=== PATIENT | female | born 1985 | race Caucasian/White ===

== ENCOUNTER 2018-01-31 06:22 | Emergency (ER) | payer OTHER ==
[~2018-01-31] VITALS: Ht 157.5 cm; Wt 63.5 kg
[~2018-01-31 06:22] MED LIST: METFORMIN
[2018-01-31 06:57] LABS: ABSOLUTE BASOPHILS 0.1 thou/uL (0.0-0.2); ABSOLUTE EOSINOPHILS 0.1 thou/uL (0.0-0.7); ABSOLUTE LYMPHOCYTES 1.3 thou/uL (0.8-5.3); ABSOLUTE MONOCYTES 0.5 thou/uL (0.0-1.2); ABSOLUTE NEUTROPHILS 4.7 thou/uL (1.6-8.1); BASOPHILS 0.9 %; EOSINOPHILS 1.4 %; HEMATOCRIT 40.1 % (37.0-47.0); HEMOGLOBIN 13.6 gm/dL (12.0-15.0); LYMPHOCYTES 19.5 %; MCH 28.8 pg (26.0-34.0); MCHC 33.9 g/dL (28.0-37.0); MONOCYTES 7.4 %; MPV 9.1 fl. (7.2-11.1); NUCLEATED RBCS 0 /100WBC; PLATELET COUNT* 244 thou/uL (150-400); POLYS 70.8 %; RBC 4.71 mil/uL (4.20-5.00); RDW-CV 12.6 % (10.5-14.5); WBC 6.7 thou/uL (4.0-11.0)
[2018-01-31 07:04] LABS: ANION GAP 8 mmol/L (7-16); BUN 12 mg/dL (7-18); CALCIUM 8.9 mg/dL (8.5-10.1); CHLORIDE 106 mmol/L (98-107); CO2 28 mmol/L (21-32); CREATININE 0.8 mg/dL (0.6-1.3); GLUCOSE 104 mg/dL (70-99); POTASSIUM 3.7 mmol/L (3.5-5.1); SODIUM 142 mmol/L (136-145)
[2018-01-31 07:10] LABS: APTT 27.2 Seconds (25.0-31.3); PROTIME 9.9 Seconds (9.20-11.50)
[2018-01-31 07:11] LABS: ALBUMIN 3.8 g/dL (3.4-5.0); ALKALINE PHOSPHATASE 94 U/L (46-116); SGOT 11 U/L (15-37); SGPT 15 U/L (30-65); TOTAL BILIRUBIN 0.3 mg/dL (<0.1-1.0); TOTAL PROTEIN 7.1 g/dL (6.4-8.2); TROPONIN-I LEVEL <0.06 ng/mL (<0.06)
[2018-01-31] MEDS ORDERED: NORCO 5-325 TA1 EACH PO (10:06)
--- NOTE | 2018-01-31 10:10 | EKG ---
[place] [address] ELECTROCARDIOGRAM REPORT Name: ANTWON DANIELS Room: [facility]#: [id number] Admission: 01/31/18 Attend Phys: Discharge: Date of : 89 Report #: [id number] THIS REPORT FOR: //name// [facility] ED Test Date: 2018-01-31 Test Time: 06:26:43 Pat Name: ANTWON DANIELS Department: Room: Gender: F Tare Weigher: RYAN : 1985 Requested By: Ktety Harris Order Number: [id number] MD: Ru Ramirez Measurements Intervals [place] Rate: 103 P: 59 NC: 123 QRS: 42 QRSD: 84 T: -12 QT: 352 QTc: 461 Interpretive Statements Sinus tachycardia Borderline repolarization abnormality Baseline wander in lead(s) V4 Compared to ECG 07/10/2011 08:10:42 Sinus rhythm no longer present Electronically Signed On 01-31-2018 10:10:11 ROUTER OPERATOR RADIAL by Ru Ramirez [email or web address] <ELECTRONICALLY SIGNED> By: Ru Ramirez MD, [facility] 01/31/18 1010 5 Ru Ramirez MD, [facility] /EPI
[2018-01-31 10:12] VITALS: BP 124/79
--- NOTE | 2018-01-31 15:11 | EKG ---
[place] [address] ELECTROCARDIOGRAM REPORT Name: ANTWON DANIELS Room: [facility]#: [id number] Admission: 01/31/18 Attend Phys: Discharge: 01/31/18 Date of : [birth year] Report #: [id number] THIS REPORT FOR: //name// [facility] ED Test Date: 2018-01-31 Test Time: 08:40:48 Pat Name: ANTWON DANIELS Department: Room: Gender: Car Pick Up Driver: Crystal TUCKER : 1985 Requested By: John Yoon Order Number: [id number] MD: Ru Ramirez Measurements Intervals [place] Rate: 76 P: 13 MI: 116 QRS: 47 QRSD: 86 T: 13 QT: 408 QTc: 459 Interpretive Statements Sinus rhythm Borderline short MI interval Compared to ECG 01/31/2018 06:26:43 Sinus tachycardia no longer present Electronically Signed On 01-31-2018 15:10:59 PROJECT ESTIMATOR by Ru Ramirez [email or web address] <ELECTRONICALLY SIGNED> By: Ru Ramirez MD, [facility] 01/31/18 1510 9 Ru Ramirez MD, [facility] /EPI
--- NOTE | 2018-01-31 16:31 | CON ---
[address] [address] CONSULTATION Name: ANTWON DANIELS [id number] Admission: 01/31/18 Attend Phys: Discharge: 01/31/18 Date of : [birth year] Report #: [id number] THIS REPORT FOR: //name// CC: Sienna Yoon DATE OF SERVICE: 01/31/2018 HISTORY OF THE PRESENT ILLNESS: The patient is a 32-year-old single white female who I was asked to see in the Emergency Room today after she complained of chest pain. The patient states she had syncope since she was a child. She eventually saw Dr. Nette fernandez at [place]. She apparently had a tilt table test. A loop recorder was inserted and she apparently was noted to have a long sinus pause. He then inserted a permanent dual chamber Medtronic pacemaker in 01/2010 at [place]. She has had no further syncope. She does have her pacemaker checked over the phone periodically. She stays active, going for walks. She has had occasional pain over the pacemaker. Last night, she noticed the pain over the pacemaker. This morning, she continued to have the pain, so she came to the Emergency Room to be evaluated. She denied any drainage. There is no swelling around the pacemaker. She has had no recent trauma to the area. She denies exertional chest pain, dyspnea on exertion, palpitations or swelling of her feet. PAST MEDICAL HISTORY: She has never been . She had recent menstrual period. She has had a tonsillectomy. She has glucose intolerance. MEDICATIONS: Her only medication included metformin. ALLERGIES: She has no known drug allergies. FAMILY HISTORY: Her grandfather, heart disease. SOCIAL HISTORY: She is single, never been and lives with her father here in [facility]. She works for [employer]. No smoking or alcohol abuse. REVIEW OF SYSTEMS: She has had no history of stroke, asthma, peptic ulcer disease, liver disease, kidney disease, cancer, psychiatric illness, chronic skin condition. PHYSICAL EXAMINATION: GENERAL: Reveals a young white female, lying in bed. She appeared in no distress. VITAL SIGNS: Blood pressure 120/80 and pulse is 80. She was afebrile. HEENT: Mucous membranes are moist. She is anicteric. Conjunctiva are pink. NECK: Supple. [place] [address] CONSULTATION Name: FRANCES,ANTWON OVALLES Room: [facility]#: [id number] Admission: 01/31/18 Attend Phys: Discharge: 01/31/18 Date of : 89 Report #: [id number] CHEST: Clear to auscultation. CARDIAC: Regular rate and rhythm and no murmur. ABDOMEN: Soft and nontender. EXTREMITIES: She had no edema, no Homans' sign. Dorsalis pedis pulse 3+ bilaterally. SKIN: Cool and dry. On skin exam, there is no swelling over the pacemaker generator in the left subclavicular area. Incision appeared well healed with no drainage. DIAGNOSTIC DATA: ECG shows a normal sinus rhythm and early repolarization. Workup in the Emergency Room, she had a portable chest x-ray that shows a normal heart size and clear lung nelson. Lead positions appear adequate. LABORATORY DATA: She had lab work, sodium 142, creatinine 0.8 and glucose 104. Liver function studies are normal. Troponin 0.06. White blood cell count 6.7 and hemoglobin 13.6. D-dimer less than 0.19. IMPRESSION AND RECOMMENDATIONS: 1. Pain over the pacemaker generator. No evidence of infection or swelling. Recommend nonsteroidal anti-inflammatory drugs. 2. History of sick sinus syndrome. I will interrogate the Medtronic pacemaker while the patient is here in the Emergency Room. 3. Previous pacemaker insertion. The patient was followed at [facility]. 4. Glucose intolerance. The patient is on metformin. <ELECTRONICALLY SIGNED> By: Ru Ramirez MD, [facility]ACC 01/31/18 1631 [id number] Ramirez MD, FACC /nt
== END 2018-01-31 10:13 | disposition home or self-care (01) ==
LOC: M.ERS 06:22
PROVIDERS: Personal Emergency Response Attendant
DX: R07.89 Other chest pain (principal); E11.9 Type 2 diabetes mellitus without complications; Z95.0 Presence of cardiac pacemaker